=== PATIENT | female | born 1990 | race African-American/Black ===

== ENCOUNTER 2017-09-05 21:24 | Inpatient (IN) | payer MEDICAID, SELFPAY ==
[~2017-09-05 21:24] MED LIST: PHENYLEPHRINE-NS 100 MCG/ML 10 ML SYRINGE ONE; Propofol 200 MG/20 ML VIAL ONE; Succinylcholine Chloride 20 MG/ML 10 ml SYRINGE FS ONE; ePHEDrine/0.9% NaCl/PF SYRINGE 50 mg/10 ml ONE
[2017-09-05 22:00] VITALS: BMI 29.2
[2017-09-05] MEDS ORDERED: Ondansetron HCl/PF 4 MG/2 ML Vial IVP PRN (22:28)
[2017-09-05] MEDS ORDERED: Promethazine HCl 25 MG/ML VIAL IM PRN (22:28)
--- NOTE | 2017-09-05 22:35 | PDOC.LDHP ---
Labor and Delivery H&P Chief complaint: other (bleeding) HPI: 27 y/o at 17w4d by EDC given from [facility], presents with small gush of blood while working. Denies cramping, LOF. Has history of 17 week miscarriage several years ago and first trimester SAB earlier this year. Denies any other complaints. No care otherwise. ROS neg for HEENT, cv, pulm, gi, gu, neuro, psych, skin, musculoskeletal or constitutional symptoms other than mentioned above. OB History Details: 17 week SAB after SROM and delivery at home. Placenta delivered with cytotec here. 7 week SAB at the [facility] earlier this year. Past Medical History: None Allergies/Adverse Reactions: Allergies Allergy/AdvReac Type Severity Reaction Status Date / Time No Known Allergies Allergy Verified 09/05/17 21:52 Social history: tobacco use, drug use (marijuana) - Physical Exam Vital signs reviewed and normal: yes General: NAD, resting Lungs: nonlabored breathing Abdomen: gravid (NTTP) Extremeties: no edema - Vaginal Exam cm dilated: 3 (Membranes prolapsing through cervix) Effacement: 90% Station: -3 - OB Labs Blood type: AB RH: positive - Assessment Previable advanced cervical dilation. FHTs in 140s. - Plan Plan: admit to L&D, informed consent obtained -: Will monitor for ctx. Discussed likely need for cerclage in the future pregnancies, given history. Will get complete OB US and labs. Bedrest with SCDs for DVT prophylaxis. Continue expectant management at this time.
[2017-09-05] MEDS ORDERED: Azithromycin 250 MG TAB PO SCH (23:00)
[2017-09-05] MEDS: Lactated Ringer's 1,000 ML IV SCH (23:40)
[2017-09-05] MEDS ORDERED: Zolpidem Tartrate 5 MG TAB PO PRN (23:44)
--- NOTE | 2017-09-05 23:52 | ULT ---
ULTRASOUND PELVIS 09/05/17 HISTORY: Vaginal bleeding and incompetent cervix. COMPARISON: None. FINDINGS: The baby's head is not well seen. This is very low within the pelvis and abutting the cervix. The cer vical length is 1.3 cm and is opened 2 cm. Heart rate documented at 147 beats per minute. Four chamber heart, stomach, kidneys, cord insertion, bladder, upper and lower extremities are seen. Placenta is posterior. Biparietal diameter is 17 week, 6 day, 3.9 cm. Head circumference is 17 week, 2 day, 13.95 cm. Abdominal circumference is 16 week, 5 day, 10.9 cm. Estimated weight is 489 grams. The estimated weight is 28th percentile. Average ultrasound age is 17 week, 3 day. Estimated da te of delivery is 02/10/18, concomitant with clinical age. IMPRESSION: 1. Dilated open cervix which is incompetent with bulging membranes. 2. Single viable intrauterine with average ultrasound age of 17 week, 3 day. Estimate d date of delivery is 02/10/18. POS: MELVA
[2017-09-06] MEDS: Ampicillin 2 GM in Sodium Chloride 0.9% 100 ML IVPB SCH ×5 (00:04→23:46)
[2017-09-06 00:20] LABS: #Eosinphils 0.2 thou/uL (0.0-0.7); #Lymphocytes 2.3 thou/uL (1.20-3.40); #Monocytes 0.7 thou/uL (0.11-0.59); #Neutrophils 8.5 thou/uL (1.40-6.50); %Basophils 0.4 % (0.0-1.0); %Eosinophils 1.6 % (0.0-10.0); %Lymphocytes 19.3 % (21.0-51.0); %Monocytes 6.1 % (0.0-10.0); Hematocrit 37.8 % (36.0-47.0); Mean Platelet Volume 8.3 fL (7.4-10.4); Red Blood Cell (RBC) Count 4.49 mill/uL (4.20-5.40); White Blood Cell (WBC) Count 11.7 thou/uL (4.8-10.8)
[2017-09-06 00:23] LABS: Amphetamine Not Detected (NotDetected); Methadone Not Detected (NotDetected); Methamphetamine Not Detected (NotDetected)
[2017-09-06] MEDS: Acetaminophen 500 MG TAB PO PRN (01:29)
--- NOTE | 2017-09-06 07:48 | PDOC.LDPN ---
Labor & Delivery Progress Note - Subjective Subjective: comfortable - Objective Vital signs reviewed and normal: yes General: NAD, resting Uterine fundus: non tender - Assessment (1) Cervical insufficiency during in second trimester, antepartum Code(s): O34.32 - MATERNAL CARE FOR CERVICAL INCOMPETENCE, SECOND TRIMESTER Current Visit: Yes Status: Acute -: Patient did well overnight, no cramping or pain. Denies VB, LOF. + for BV, started on Flagyl. Will be NPO after breakfast for possible rescue cerclage. Continue expectant management for now.
[2017-09-06] MEDS: Lactated Ringer's 1,000 ML IV SCH ×2 (08:38→17:39)
[2017-09-06] MEDS: metroNIDAZOLE 500 MG TAB PO SCH ×2 (11:05→22:36)
[2017-09-06 19:03] LABS: Hematocrit 37.5 % (36.0-47.0); Mean Platelet Volume 7.5 fL (7.4-10.4); Red Blood Cell (RBC) Count 4.38 mill/uL (4.20-5.40)
[2017-09-06] MEDS ORDERED: Lidocaine 1% (PF) 30 ML VIAL ONE (19:27)
[2017-09-06] MEDS ORDERED: Fentanyl 100 MCG/2 ML VIAL ONE (19:49)
[2017-09-06] MEDS ORDERED: Ondansetron HCl/PF 4 MG/2 ML Vial IVP PRN (21:23)
[2017-09-06] MEDS ORDERED: Promethazine HCl 25 MG/ML VIAL IM PRN (21:23)
[2017-09-06] MEDS ORDERED: Promethazine HCl 25 MG/ML VIAL SLOW IVP PRN (21:23)
[2017-09-07] MEDS: Lactated Ringer's 1,000 ML IV SCH ×3 (02:07→19:57)
[2017-09-07] MEDS: Ampicillin 2 GM in Sodium Chloride 0.9% 100 ML IVPB SCH ×3 (06:01→18:17)
--- NOTE | 2017-09-07 07:43 | OP ---
DATE OF PROCEDURE: 09/06/2017 PREOPERATIVE DIAGNOSES: 1. Incompetent cervix. 2. Intrauterine at 17 weeks and 6 days. 3. Hourglassing membranes. POSTOPERATIVE DIAGNOSES: 1. Incompetent cervix. 2. Intrauterine at 17 weeks and 6 days. 3. Hourglassing membranes. PROCEDURE: Cervical cerclage. SURGEON: Dr. Tam Silva COMPLICATIONS: None. ESTIMATED BLOOD LOSS: 50 mL. INDICATIONS FOR PROCEDURE: Ms. Lay Royal is a 27-year-old female who has been here in the hosp ital for over 24 hours at 17 weeks and 6 days with a dilated cervix an hourglassing membranes in the absence of contractions or labor. She has remained afebrile and her white count has been stable. Th e patient was counseled to the possibility to attempt a cervical cerclage with the risks of rupture o f membranes, infection, labor, of damage to adjacent organs. We had a long discussion and idalia campos has expressed a clear understanding of her options and the potential complications to those opt ions and desires to proceed with the cervical cerclage. She was taken to the operating room and placed under general anesthesia. She was placed in dorsal li thotomy position in Delmer stirrups. Attention was placed vaginally with the aid of operative speculu m. The amniotic sac was clearly visible in the vaginal canal. The bladder was back filled to approx imately 500 mL of urine, which helped retract the amniotic sac further into the uterine cavity; howev er, the cervix was still not visible. A moist sponge stick was then used to gently elevate the bag f urther into the vaginal canal until it retracted into the cervix itself and into the uterine cavity. With a sponge stick in place the edges of the remaining cervix were then identified with the aid of a right-angle retractors and ring forceps with the cervix margins identified and the vaginal cervical junction identified. A mersilene tape double needle mersilene tape was then used with some difficul ty to create a pursestring stitch around the cervix about 1-1.5 cm from the outer edge of the cervix with care to always be aware of needle placement and care to avoid adjacent organs. After difficulty , the stitch was placed and the needles were cut and the surgeon's knot was then place into the sutur e and as it was tied down the sponge stick was removed and the cervix was this successfully closed. The suture was then tied down with a final air knot placed for better identification of the location of the knot and the procedure was completed. The patient was awoken from anesthesia and taken to rec overy room in stable condition.
--- NOTE | 2017-09-07 07:49 | PRG ---
DATE OF SERVICE: 09/07/2017 Early this morning the report was given that the patient while going to the bathroom coughed and bega n having gross leakage of fluid from her vaginal canal. The patient had spontaneously ruptured. The patient has been resting through the night, has not had contractions begin. We did discuss this mor anatoliy concerns with development at this stage with no fluid and discussed the options of removin g the suture or expected management with suture in place. The family has discussed their options. Kizzy yeung are waiting on the input from the hospital ethics committee on what limitations we have at this [facility] for moving forward and will be having further discussion later this morning. In the meantime, the patient will remain here and has no signs of labor. PHYSICAL EXAMINATION: VITAL SIGNS: Blood pressure this morning 99/53, heart rate of 100, respiratory rate 16, temperature 99.1. GENERAL: Patient appears to have internal conflict with the decision before her. We will be awaitin g the hospital's input.
--- NOTE | 2017-09-07 08:18 | PDOC.EVN ---
Event Note - Event Note Event Note: 09/07/17 @ 0815: L&D Room 7 Patient desires cercalge removal, 17 weeks with FHTs, ROM noted. Dr Silva and I and Vidhi Hogue in OBGYN Office now and all agree virtually no chance to remain without infection up to 23 weeks due to ROM at under 20 weeks ( under viability). Dr Silva (previously certified addiction counselor) has confirmed patient's desire to remove cerclage and await natural progress. If fevers or excessive leucocytosis, will need prostin induction. Prostin or cytotec induction if loss of FHTs. For now, await Ethics Clearence- Mykel to do this AM.
[2017-09-07] MEDS: Acetaminophen 500 MG TAB PO PRN ×2 (08:31→20:12)
--- NOTE | 2017-09-07 09:34 | PDOC.EVN ---
Event Note - Event Note Event Note: 09/07/17 @ 0930: Ariel Benito, the patient's RN, Ethics has called and cleared the cerclage removal. I have spoken to the patient at bedside along with her partner /. We discussed options including leaving the cerclage in place. Limits of viability discussed. patient wishes to remove cerclage. She is aware that spontaneous cervical dilation may progress. [facility] policy also reviewed with her regarding cardiac activity and limitations on labor induction. We will give the patient IV sedation and plan for removal of cerclage in the room (LDR 7).
--- NOTE | 2017-09-07 10:28 | PDOC.EVN ---
Event Note - Event Note Event Note: 09/07/17 @ 1022: CERCLAGE REMOVAL Location L&D Time to remove: 5 minutes Anesthesia: IV sedation (Stadol) In Triage B (patient moved from LDR 7 for lithotomy bed), patient underwent single cerclage removal with sharp mayos and lighted speculum. MDs: Cerclage removed by Dr Turner in my presence, direct visualization. EBL: 5ml or less. No monsels used. Cervix visually closed. Patient tolerated procedure well. We will tranfer back to R 7. Assessment/Plan: 1. 17 weeks 2. Cerclage out 3. VTE prophylaxis- SCDs 4. Ethics cleared 5. Follow temps and FHTs for now. i did inform her that she may be transfered at her request if desired induction prior to our intervention per L&D policy.
[2017-09-07] MEDS: metroNIDAZOLE 500 MG TAB PO SCH ×2 (10:38→21:33)
--- NOTE | 2017-09-07 16:57 | PDOC.EVN ---
Event Note - Event Note Event Note: 09/07/17 @ 1654: L&D check: Patient stable. No new issues. Afebrile. S/P cerclage removal this AM.
--- NOTE | 2017-09-07 20:13 | PDOC.EVN ---
Event Note - Event Note Event Note: 09/07/17 @ 2013: Temp 99.1. Repeat CBC ordered for 0330.Currently on Amp/Flagyl from yesterday's .
[2017-09-08] MEDS: Ampicillin 2 GM in Sodium Chloride 0.9% 100 ML IVPB SCH ×4 (00:15→18:30)
[2017-09-08] MEDS: Lactated Ringer's 1,000 ML IV SCH (04:04)
[2017-09-08 05:36] LABS: #Eosinphils 0.1 thou/uL (0.0-0.7); #Lymphocytes 2.1 thou/uL (1.20-3.40); #Monocytes 0.6 thou/uL (0.11-0.59); #Neutrophils 5.5 thou/uL (1.40-6.50); %Basophils 0.3 % (0.0-1.0); %Eosinophils 1.4 % (0.0-10.0); %Lymphocytes 24.7 % (21.0-51.0); %Monocytes 7.1 % (0.0-10.0); Red Blood Cell (RBC) Count 3.59 mill/uL (4.20-5.40); White Blood Cell (WBC) Count 8.3 thou/uL (4.8-10.8)
[2017-09-08] MEDS: Acetaminophen 500 MG TAB PO PRN (06:30)
[2017-09-08] MEDS ORDERED: Cepastat Lozenges 1 LOZ PO PRN (06:41)
--- NOTE | 2017-09-08 07:11 | PDOC.EVN ---
Event Note - Event Note Event Note: 09/08/17 @ 0710: Cerclage removed yesterday AM. Patient with no new complaints. No VB. Afebrile. We will await 48 hours after cerclage removal and consider outpatient follow up if fevers OR continue in-house observations. For now, continue L&D obs.
[2017-09-08] MEDS: metroNIDAZOLE 500 MG TAB PO SCH ×2 (09:24→21:08)
--- NOTE | 2017-09-08 19:17 | PDOC.EVN ---
Event Note - Event Note Event Note: Patient requesting ultrasound to look at fluid level. Still feeling movement. Bleeding and fluid leakage minimal. Tolerating regular diet, ambulating to bathroom. Temp 98-99. VSS Abd - gravid, nontender Bedside ultrasound performed: no measurable pockets of fluid, fetus with + movement and FHTs in 150s. Continue expectant management. Will recheck labs in am.
[2017-09-09] MEDS: Ampicillin 2 GM in Sodium Chloride 0.9% 100 ML IVPB SCH ×5 (00:20→22:07)
[2017-09-09 05:47] LABS: #Basophils 0.1 thou/uL (0.0-0.2); #Eosinphils 0.2 thou/uL (0.0-0.7); #Monocytes 0.5 thou/uL (0.11-0.59); #Neutrophils 5.4 thou/uL (1.40-6.50); %Basophils 0.6 % (0.0-1.0); %Eosinophils 2.1 % (0.0-10.0); %Lymphocytes 24.8 % (21.0-51.0); %Monocytes 6.1 % (0.0-10.0); Hematocrit 32.7 % (36.0-47.0); Mean Platelet Volume 7.2 fL (7.4-10.4); Red Blood Cell (RBC) Count 3.81 mill/uL (4.20-5.40); White Blood Cell (WBC) Count 8.1 thou/uL (4.8-10.8)
--- NOTE | 2017-09-09 07:29 | PDOC.EVN ---
Event Note - Event Note Event Note: S: Doing well this morning, no complaints. LOF minimal, pink tinged. O: AFVSS, Tm 99.2 Gen: AAO, NAD Abd: gravid, NTTP Laboratory Results - last 24 hr 09/05/17 09/09/17 23:40 05:37 WBC 8.1 RBC 3.81 L Hgb 11.4 L Hct 32.7 L MCV 85.9 MCH 29.9 MCHC 34.8 RDW 11.5 Plt Count 183 MPV 7.2 L Neutrophils % 66.4 Lymphocytes % 24.8 Monocytes % 6.1 Eosinophils % 2.1 Basophils % 0.6 Neutrophils # 5.4 Lymphocytes # 2.0 Monocytes # 0.5 Eosinophils # 0.2 Basophils # 0.1 Rubella IgG Antibody Less than 0.90 L A/P: Will be s/p cerclage removal later this morning. Continue to monitor with likely d/c for expectant management.
[2017-09-09] MEDS: metroNIDAZOLE 500 MG TAB PO SCH (09:10)
--- NOTE | 2017-09-09 09:43 | PRG ---
DATE OF SERVICE: 09/09/2017 TIME OF SERVICE: 09:15 SUBJECTIVE: Patient is a G3, P0, at 18 weeks and 1 day gestation with previable cervical dil atation and rupture of membrane, status post cerclage placement, status post removal of cerclage. Th e patient has a history of prior second trimester incompetent cervix loss. The patient is currently on Flagyl only for bacterial vaginosis. Ampicillin and Zithromax that was administered ion und the time of cerclage, patient has been discontinued. PHYSICAL EXAMINATION: VITAL SIGNS: The patient remains afebrile with pulse in the 80s, normal blood pressures. GENERAL: Patient is alert and oriented, conversant and appropriate. ABDOMEN: Soft and nontender. GENITOURINARY: Vaginally, minimal to any discharge. EXTREMITIES: Without clubbing, cyanosis or edema. LABORATORY STUDIES: Patient's white count has declined to approximately 8,000, hematocrit is stable. IMPRESSION: Status post rupture of membranes with present FHTs at 18 weeks gestation, status post re moval of cerclage with cervical dilatation to 2-3 cm range last visual exam. PLAN: Discussed with the patient extensively the nonviable nature of her fetus at this time and that for the next 6-7 weeks, care would be based mostly upon maternal needs. Discussed the risk of william nuing the including possible chorioamnionitis, uterine infection, sepsis and even remote po ssibility of organ failure, need for hysterectomy, and . PLAN: 1. Continue p.o. Flagyl for 7 days for bacterial vaginosis. 2. Continue hospitalization with transfer to antepartum aguila, allowing ambulation, showering, regula r diet. 3. Routine vital signs with daily FHTs. 4. Ultrasound on Thursday. 5. Possible discharge home at approximately 7 days post presentation with close followup. Gore for d ischarge home would be patient's compliance with care plan, access to transportation, and digital tem perature measurements on 4 times a day basis at home.
[2017-09-09] MEDS ORDERED: Calcium Carbonate 500 MG ChewTAB PO PRN (14:17)
[2017-09-09] MEDS ORDERED: Ondansetron ODT 4 MG TAB PO PRN (14:17)
[2017-09-09] MEDS ORDERED: Acetaminophen 325 MG TAB PO PRN (14:17)
[2017-09-09] MEDS: Lactated Ringer's 1,000 ML IV SCH ×2 (14:46→22:06)
[2017-09-09] MEDS: Famotidine 20 MG TAB PO SCH (21:04)
[2017-09-09] MEDS: Docusate 100 MG CAP PO SCH (21:04)
[2017-09-10 05:34] LABS: #Eosinphils 0.2 thou/uL (0.0-0.7); #Lymphocytes 2.1 thou/uL (1.20-3.40); #Monocytes 0.6 thou/uL (0.11-0.59); #Neutrophils 5.6 thou/uL (1.40-6.50); %Basophils 0.5 % (0.0-1.0); %Eosinophils 2.7 % (0.0-10.0); %Lymphocytes 24.5 % (21.0-51.0); %Monocytes 6.4 % (0.0-10.0); Mean Platelet Volume 8.2 fL (7.4-10.4); Red Blood Cell (RBC) Count 4.09 mill/uL (4.20-5.40); White Blood Cell (WBC) Count 8.5 thou/uL (4.8-10.8)
--- NOTE | 2017-09-10 07:40 | PRG ---
DATE OF SERVICE: 09/10/2017 TIME OF SERVICE: 07:15 SUBJECTIVE: Ms. Felder is on hospital day #5, status post spontaneous rupture of membranes, status post presentation with incompetent cervix, cerclage placement and removal. She denies contractions. OBJECTIVE: VITALS SIGNS: FHTs 150s, temperature 98.2, pulse 72, respirations 18, blood pressure 96/55. GENERAL: The patient is resting comfortably. ABDOMEN: Soft and nontender, without rebound or guarding. No vaginal bleeding or discharge is noted . LABORATORY DATA: White count is 8.5. IMPRESSION: Early second trimester rupture of membranes with persistent heart rate activity an d no evidence of chorioamnionitis. PLAN: Continue Flagyl for bacterial vaginosis. Continue hospital admission because of concerns abou t the risks of chorioamnionitis. We will consider discharge home on approximately day 7-9 with close outpatient followup if current course continues.
[2017-09-10] MEDS: metroNIDAZOLE 500 MG TAB PO SCH ×3 (09:12→20:47)
[2017-09-10] MEDS: Famotidine 20 MG TAB PO SCH (09:12)
[2017-09-10] MEDS: Docusate 100 MG CAP PO SCH (09:12)
--- NOTE | 2017-09-10 11:15 | PDOC.EVN ---
Event Note - Event Note Event Note: S: I was called to floor for suspected cord prolapse. Pt denies any chills, CV or RESP complaints. She reports continued extremely light VB but no odor, itching or irritation. She states it feels as though she is "going to pass a blood clot when I'm on my period." Pt noticed after trip to [place]. O: Vital Signs (24 hours) Temp Pulse Resp BP Pulse Ox 09/10/17 08:04 98.4 F 75 20 96 09/10/17 07:43 98.4 F 75 20 86/49 L 96 09/10/17 04:12 98.2 F 72 18 96/55 L 96 09/09/17 23:29 99.2 F 70 18 99/60 09/09/17 19:48 98.9 F 77 18 93/55 L 09/09/17 16:27 98.7 F 75 20 09/09/17 14:17 98.7 F 75 20 100/60 FHT. 180s Gen. NAD Resp. Unlabored . loop of cord prolapsed past introitus A/P: 18+ week IUP with incompetent cervix, s/p rescue cerclage, rupture of membranes , removal of cerclage. Pt has been stable for the last 3 days, now with cord prolapse and live IUP * transfer to L&D * CBC, BMP, lactic acid * Ultrasound * expectant mgmt as long as live IUP unless pt develops life threatening maternal complications
[2017-09-10 11:48] LABS: #Basophils 0.1 thou/uL (0.0-0.2); #Eosinphils 0.2 thou/uL (0.0-0.7); #Lymphocytes 1.6 thou/uL (1.20-3.40); #Monocytes 0.4 thou/uL (0.11-0.59); #Neutrophils 6.2 thou/uL (1.40-6.50); %Basophils 0.7 % (0.0-1.0); %Lymphocytes 18.5 % (21.0-51.0); %Monocytes 4.9 % (0.0-10.0); Hematocrit 36.2 % (36.0-47.0); Mean Platelet Volume 7.3 fL (7.4-10.4); Red Blood Cell (RBC) Count 4.23 mill/uL (4.20-5.40); White Blood Cell (WBC) Count 8.4 thou/uL (4.8-10.8)
[2017-09-10 12:06] LABS: Anion Gap 10 mmol/L (10-20); BUN (Urea Nitrogen) 7 mg/dL (7.0-18.7); Calc. Creatinine Clearance 150 mL/min (70-130); Calcium 8.6 mg/dL (7.8-10.44); Carbon Dioxide 23 mmol/L (22-29); Chloride 106 mmol/L (98-107); Estimated GFR-MDRD Greater than 90
[2017-09-11] MEDS: Famotidine 20 MG TAB PO SCH ×3 (04:42→21:12)
[2017-09-11] MEDS: Docusate 100 MG CAP PO SCH ×4 (04:42→21:13)
[2017-09-11 05:56] LABS: #Eosinphils 0.2 thou/uL (0.0-0.7); #Monocytes 0.5 thou/uL (0.11-0.59); #Neutrophils 6.2 thou/uL (1.40-6.50); %Basophils 0.2 % (0.0-1.0); %Eosinophils 2.4 % (0.0-10.0); %Lymphocytes 22.7 % (21.0-51.0); %Monocytes 5.8 % (0.0-10.0); Hematocrit 34.6 % (36.0-47.0); Mean Platelet Volume 7.9 fL (7.4-10.4); Red Blood Cell (RBC) Count 4.04 mill/uL (4.20-5.40)
--- NOTE | 2017-09-11 08:28 | PDOC.EVN ---
Event Note - Event Note Event Note: Pt doing well, cont'd min pinkish vaginal bleeding. No pain or cramping Vital Signs (24 hours) Temp Pulse Resp BP 09/10/17 19:58 98.6 F 77 20 09/10/17 11:05 71 99/53 L Laboratory Last Values WBC 9.0 thou/uL (4.8-10.8) 09/11/17 05:12 RBC 4.04 mill/uL (4.20-5.40) L 09/11/17 05:12 Hgb 12.0 g/dL (12.0-16.0) 09/11/17 05:12 Hct 34.6 % (36.0-47.0) L 09/11/17 05:12 MCV 85.7 fl (81.0-99.0) 09/11/17 05:12 MCH 29.8 pg (27.0-31.0) 09/11/17 05:12 MCHC 34.7 g/dL (32.0-36.0) 09/11/17 05:12 RDW 11.6 % (11.5-14.5) 09/11/17 05:12 Plt Count 209 thou/uL (130-400) 09/11/17 05:12 MPV 7.9 fL (7.4-10.4) 09/11/17 05:12 Neutrophils % 68.9 % (42.0-75.0) 09/11/17 05:12 Lymphocytes % 22.7 % (21.0-51.0) 09/11/17 05:12 Monocytes % 5.8 % (0.0-10.0) 09/11/17 05:12 Eosinophils % 2.4 % (0.0-10.0) 09/11/17 05:12 Basophils % 0.2 % (0.0-1.0) 09/11/17 05:12 Neutrophils # 6.2 thou/uL (1.40-6.50) 09/11/17 05:12 Lymphocytes # 2.0 thou/uL (1.20-3.40) 09/11/17 05:12 Monocytes # 0.5 thou/uL (0.11-0.59) 09/11/17 05:12 Eosinophils # 0.2 thou/uL (0.0-0.7) 09/11/17 05:12 Basophils # 0.0 thou/uL (0.0-0.2) 09/11/17 05:12 Sodium 136 mmol/L (136-145) 09/10/17 11:38 Potassium 3.4 mmol/L (3.5-5.1) L 09/10/17 11:38 Chloride 106 mmol/L (98-107) 09/10/17 11:38 Carbon Dioxide 23 mmol/L (22-29) 09/10/17 11:38 Anion Gap 10 mmol/L (10-20) 09/10/17 11:38 BUN 7 mg/dL (7.0-18.7) 09/10/17 11:38 Creatinine 0.68 mg/dL (0.6-1.1) 09/10/17 11:38 Estimated GFR (MDRD) Greater than 90 09/10/17 11:38 Glucose 76 mg/dL (70-105) 09/10/17 11:38 Lactic Acid 0.8 mmol/L (0.5-2.2) 09/10/17 11:38 Calcium 8.6 mg/dL (7.8-10.44) 09/10/17 11:38 Urine Opiates Screen Not Detected (NotDetected) 09/05/17 23:15 Ur Oxycodone Screen Not Detected (NotDetected) 09/05/17 23:15 Urine Methadone Screen Not Detected (NotDetected) 09/05/17 23:15 Ur Propoxyphene Screen Not Detected (NotDetected) 09/05/17 23:15 Ur Barbiturates Screen Not Detected (NotDetected) 09/05/17 23:15 Ur Tricyclics Screen Not Detected (NotDetected) 09/05/17 23:15 Ur Phencyclidine Scrn Not Detected (NotDetected) 09/05/17 23:15 Ur Amphetamines Screen Not Detected (NotDetected) 09/05/17 23:15 U Methamphetamines Scrn Not Detected (NotDetected) 09/05/17 23:15 U Benzodiazepines Scrn Not Detected (NotDetected) 09/05/17 23:15 U Cocaine Metab Screen Not Detected (NotDetected) 09/05/17 23:15 U Cannabinoids Screen Detected (NotDetected) H 09/05/17 23:15 Drug Screen Comment () 09/05/17 23:15 Syphilis IgG/IgM Ab Nonreactive (Nonreactive) 09/05/17 23:40 Chlamydia DNA (PCR) Not Detected (NotDetected) 09/05/17 23:45 Hep Bs Antigen Non-Reactive S/CO (NonReactive) 09/05/17 23:40 HIV 1&2 Antigen & Ab Non-Reactive (NonReactive) 09/05/17 23:40 N.gonorrhoeae DNA (PREPARER) Not Detected (NotDetected) 09/05/17 23:45 Rubella IgG Antibody Less than 0.90 index (Immune >0.99) L 09/05/17 23:40 Blood Type AB POSITIVE 09/05/17 23:40 Antibody Screen NEGATIVE 09/05/17 23:40 Gen NAD FHT 150s A/P; 18+ week IUP with incompetent cervix, s/p rescure cerclage, s/p ROM and removal of cerclage. Had cord prolapse yesterday and but has otherwise remained stable. No leukocytosis. Cont observation for infection, bleeding or other life threatening maternal complication. Induce in case of that or demise
[2017-09-11] MEDS: metroNIDAZOLE 500 MG TAB PO SCH ×2 (10:23→18:32)
[2017-09-12 08:29] LABS: #Eosinphils 0.1 thou/uL (0.0-0.7); #Lymphocytes 1.3 thou/uL (1.20-3.40); #Monocytes 0.8 thou/uL (0.11-0.59); %Basophils 0.4 % (0.0-1.0); %Lymphocytes 11.5 % (21.0-51.0); %Monocytes 6.7 % (0.0-10.0); Hematocrit 36.8 % (36.0-47.0); Mean Platelet Volume 8.6 fL (7.4-10.4); Red Blood Cell (RBC) Count 4.32 mill/uL (4.20-5.40); White Blood Cell (WBC) Count 11.2 thou/uL (4.8-10.8)
[2017-09-12] MEDS ORDERED: Ibuprofen 800 MG TAB PO PRN (08:46)
[2017-09-12] MEDS ORDERED: Misoprostol 200 MCG TAB PR PRN (08:46)
[2017-09-12] MEDS ORDERED: Lidocaine 1% (PF) 30 ML VIAL SC PRN (08:46)
[2017-09-12] MEDS ORDERED: Fentanyl 100 MCG/2 ML VIAL ONE (08:50)
--- NOTE | 2017-09-12 08:56 | PDOC.EVN ---
Event Note - Event Note Event Note: S: Pt c/o cramping since this AM and chills that just started. Cervix was checked by RN earlier b/c pt felt need to push O: Vital Signs (24 hours) Temp Pulse Resp 09/11/17 20:00 98.7 F 91 18 09/11/17 11:00 98.7 F Tm24h 99.3 Gen. Mild distress Resp. unlabored . Prolapsed cord, cx Laboratory Results - last 24 hr 09/12/17 07:30 WBC 11.2 H RBC 4.32 Hgb 13.0 Hct 36.8 MCV 85.2 MCH 30.1 MCHC 35.4 RDW 11.5 Plt Count 210 MPV 8.6 Neutrophils % 80.4 H Lymphocytes % 11.5 L Monocytes % 6.7 Eosinophils % 1.0 Basophils % 0.4 Neutrophils # 9.0 H Lymphocytes # 1.3 Monocytes # 0.8 H Eosinophils # 0.1 Basophils # 0.0 A/P: 18+ week IUP, incompetent cervix s/p rescure cerclage followed by ROM. Cord prolapse on 09/10. Pt has leukocytosis today and chills but Tm 99.3. * recheck temp and FHT now * epidural for pain mgmt * CMP and lactic acid ordered * anticipate vaginal delivery of non-viable fetus
[2017-09-12] MEDS ORDERED: Morphine 10 MG/ML VIAL SLOW IVP SCH (09:00)
[2017-09-12] MEDS ORDERED: Fentanyl 100 MCG/2 ML VIAL SLOW IVP SCH (09:00)
[2017-09-12] MEDS ORDERED: Fentanyl 4 mcg/Marc 0.1% Cadd 100 ML ONE (09:31)
[2017-09-12 09:43] LABS: Lactic Acid - Sepsis 2.4 mmol/L (0.5-2.2)
[2017-09-12 09:48] LABS: ALT (SGPT) 116 U/L (8-55); AST (SGOT) 67 U/L (5-34); Alkaline Phosphatase 88 U/L (40-150); Anion Gap 13 mmol/L (10-20); BUN (Urea Nitrogen) 5 mg/dL (7.0-18.7); Bilirubin, Total 0.5 mg/dL (0.2-1.2); Calc. Creatinine Clearance 140 mL/min (70-130); Calcium 8.8 mg/dL (7.8-10.44); Carbon Dioxide 20 mmol/L (22-29); Chloride 106 mmol/L (98-107); Estimated GFR-MDRD Greater than 90; Globulin 3.2 g/dL (2.4-3.5); Protein, Total 6.6 g/dL (6.0-8.3)
--- NOTE | 2017-09-12 11:10 | PDOC.EVN ---
Event Note - Event Note Event Note: FHT attempted and noted to be absent with doppler. Ltd sono confirmed absence of heart tones. Pt will receive epidural and then cytotec. Vital Signs (12 hours) Temp Pulse Resp BP 09/12/17 08:00 98.1 F 88 20 89/62 L Weight Weight 170 lb Laboratory Results - last 24 hr 09/12/17 09/12/17 09/12/17 07:30 09:13 09:13 WBC 11.2 H RBC 4.32 Hgb 13.0 Hct 36.8 MCV 85.2 MCH 30.1 MCHC 35.4 RDW 11.5 Plt Count 210 MPV 8.6 Neutrophils % 80.4 H Lymphocytes % 11.5 L Monocytes % 6.7 Eosinophils % 1.0 Basophils % 0.4 Neutrophils # 9.0 H Lymphocytes # 1.3 Monocytes # 0.8 H Eosinophils # 0.1 Basophils # 0.0 Sodium 136 Potassium 3.2 L Chloride 106 Carbon Dioxide 20 L Anion Gap 13 BUN 5 L Creatinine 0.73 Estimated GFR (MDRD) Greater than 90 Glucose 98 Lactic Acid 2.4 H Calcium 8.8 Total Bilirubin 0.5 AST 67 H ALT 116 H Alkaline Phosphatase 88 Serum Total Protein 6.6 Albumin 3.4 L Globulin 3.2 Albumin/Globulin Ratio 1.1 L
[2017-09-12] MEDS ORDERED: Eucerin (Mineral Oil/Petrolatum,White) 30 gm Jar TOP PRN (11:17)
[2017-09-12] MEDS ORDERED: Naloxone HCl 0.4 mg/ml Vial IVP PRN ×2 (11:17)
[2017-09-12] MEDS ORDERED: Ondansetron HCl/PF 4 MG/2 ML Vial IVP PRN (11:17)
[2017-09-12] MEDS ORDERED: Acetaminophen 325 MG TAB PO PRN (11:17)
[2017-09-12] MEDS ORDERED: diphenhydrAMINE 50 MG/ML VIAL IVP PRN (11:17)
[2017-09-12] MEDS ORDERED: Lactated Ringer's 500 ML IV PRN (11:17)
[2017-09-12] MEDS ORDERED: Promethazine HCl 25 MG/ML VIAL IM PRN (11:17)
[2017-09-12] MEDS ORDERED: ePHEDrine/0.9% NaCl/PF SYRINGE 50 mg/10 ml SLOW IVP PRN (11:17)
[2017-09-12] MEDS ORDERED: Communication Order-Pharmacy FS SCH (11:30)
[2017-09-12] MEDS: Misoprostol 100 MCG TAB VAG SCH ×3 (11:43→20:44)
[2017-09-12] MEDS: Fentanyl 4mcg/Marcaine 0.1% Cassette 100 ML EPIDURAL SCH ×2 (11:44→18:41)
[2017-09-12] MEDS: Famotidine 20 MG TAB PO SCH (13:57)
[2017-09-12] MEDS: LR / Pitocin 40 units/1000 ml 1,000 ML IV PRN ×2 (19:15→21:26)
[2017-09-12] MEDS: metroNIDAZOLE 500 MG TAB PO SCH ×2 (20:44→20:45)
[2017-09-12] MEDS ORDERED: Bisacodyl 10 MG SUPP PR PRN (23:31)
[2017-09-12] MEDS ORDERED: LR / Pitocin 40 units/1000 ml 1,000 ML IV SCH (23:31)
[2017-09-12] MEDS ORDERED: Milk Of Magnesia 30 ML UDCUP PO PRN (23:31)
[2017-09-12] MEDS ORDERED: Docusate (Surfak) 240 MG CAP PO SCH (23:45)
[2017-09-12] MEDS ORDERED: Ibuprofen 800 MG TAB PO SCH (23:45)
[2017-09-12] MEDS ORDERED: Adacel (T-DAP) 0.5 ML VIAL IM ONE (23:45)
[2017-09-13] MEDS: Misoprostol 100 MCG TAB VAG SCH (01:26)
[2017-09-13] MEDS: Docusate 100 MG CAP PO SCH (01:26)
[2017-09-13] MEDS: Famotidine 20 MG TAB PO SCH (01:26)
[2017-09-13] MEDS ORDERED: Docusate (Surfak) 240 MG CAP PO SCH (09:00)
[2017-09-13] MEDS: Ferrous Sulfate 325 MG TAB PO SCH ×2 (09:06→15:56)
[2017-09-13] MEDS: Ibuprofen 800 MG TAB PO SCH ×2 (09:06→15:55)
[2017-09-13 15:59] VITALS: BP 98/60; TEMP 98.9
--- NOTE | 2017-09-14 13:44 | DIS ---
DATE OF ADMISSION: 09/05/2017 DATE OF DISCHARGE: 09/13/2017 ADMISSION DIAGNOSES: 1. An 18-week intrauterine . 2. Incompetent cervix with dilation of 3 cm. DISCHARGE DIAGNOSES: 1. Incompetent cervix with dilation of 3 cm at 18 weeks' gestation. 2. rupture of membranes. 3. Cord prolapse. 4. labor. PROCEDURES PERFORMED: 1. Ultrasound. 2. Rescue cerclage. 3. Management of labor versus late second trimester miscarriage. HOSPITAL COURSE: At the time of presentation this morning, Emerita is a 27-year-old 3, para 0 female at approximately 18 weeks' gestation with known history of incompetent cervix in a prior pr egnancy as well as a first trimester loss in a prior . At the time of presentation, her cer vix was found to be 3 cm dilated. She received a rescue cerclage. Shortly after the rescue cerclage was placed, patient had spontaneous rupture of membranes. The rescue cerclage was removed and she w as managed expectantly. On 09/10/2017, patient was noted to have prolapse of the umbilical cord. Sh e continued to have positive cardiac motion and was not having any bleeding or cramping. The p atient did not demonstrate any leukocytosis. She continued to be managed expectantly. She was caref ully monitored for fever and sinus infection and was moved to labor and delivery. On 09/12/2017, dianne angulo began to have heavier vaginal bleeding, crampy abdominal pain. cardiac motion was noted t o have stopped and patient was diagnosed with intrauterine demise. At that point, she received an epidural for pain and Cytotec for completion of second trimester incomplete medically. She had an uncomplicated delivery of the baby followed closely by the placenta with estimated blood l oss of 450 mL. The patient tolerated the procedure well. She was maintained in total 1 day after de livery. She remained afebrile. She had adequate pain control. On the day of discharge, patient was afebrile and vital signs were stable. Abdomen was soft, nontender, nondistended, no rebound, no gua rding. ASSESSMENT AND PLAN: One day status post completion of second trimester incomplete with Cyt otec. The patient is doing well. She was discharged to home with routine precautions and encouraged to follow up in 1-[address] Flanagan. Of note, the patient was instructed several times that i n future , she does need to present in the first trimester for care and that she ma y receive a cerclage at approximately 14 weeks for the diagnosis of incompetent cervix. The patient expressed understanding.
== END 2017-09-13 20:10 | disposition home or self-care (01) | DRG 983 ==
LOC: L&D/OP 21:24 → L&D 22:38 → 3SE 09-09 14:10 → L&D 09-10 10:58 → 3SE 09-12 22:42
PROVIDERS: ADMIT Obstetrics & Gynecology; ATTEND Obstetrics & Gynecology
PROC: 0UVC7ZZ Restriction of Cervix, Via Natural or Artificial Opening (ICD-10-PCS; principal; 2017-09-06)
PROC: 0UCC7ZZ Extirpation of Matter from Cervix, Via Natural or Artificial Opening (ICD-10-PCS; 2017-09-07)
PROC: 10E0XZZ Delivery of Products of Conception, External Approach (ICD-10-PCS; 2017-09-12)
PROC: 3E0P7VZ Introduction of Hormone into Female Reproductive, Via Natural or Artificial Opening (ICD-10-PCS; 2017-09-12)
DX: O34.32 Maternal care for cervical incompetence, second trimester (principal); O69.0XX0 Labor and delivery complicated by prolapse of cord, not applicable or unspecified; O03.4 Incomplete spontaneous abortion without complication; Z3A.18 18 weeks gestation of pregnancy; O42.912 Preterm premature rupture of membranes, unspecified as to length of time between rupture and onset of labor, second trimester
CPT/HCPCS: 36415; 76805; 76815; 80048; 80053; 80306; 83605; 85025; 85027; 86762; 86780; 86850; 86900; 86901; 87340; 87389; 87480; 87491; 87510; 87591; 87660; 88300; 88305; J0290; J0595; J2001; J2704; J3010; J7050

== ENCOUNTER 2018-06-01 10:08 | Day surgery (SDC) | payer OTHER ==
[2018-05-31 12:41] VITALS: BMI 28.9
[2018-06-01] MEDS ORDERED: CEFAZOLIN/Water 2 GM/20 ML SYRINGE ONE (10:58)
[2018-06-01] MEDS ORDERED: Fentanyl 100 MCG/2 ML VIAL ONE (13:21)
--- NOTE | 2018-06-01 14:19 | OP ---
DATE OF PROCEDURE: 06/01/2018 PREOPERATIVE DIAGNOSES: 1. Intrauterine at 13 weeks. 2. Cervical insufficiency. POSTOPERATIVE DIAGNOSES: 1. Intrauterine at 13 weeks. 2. Cervical insufficiency. PROCEDURE: Prophylactic cervical cerclage. ANESTHESIA: IV sedation. ATTENDING SURGEON: Elizabeth Shafer M.D. WIND FARM DESIGNER: None. ESTIMATED BLOOD LOSS: 5 mL. INTRAVENOUS FLUIDS: 1200 mL crystalloid. URINE OUTPUT: 500 mL of clear urine. PATHOLOGY: None. COMPLICATIONS: None. DRAINS: None. FINDINGS: A long closed cervix internally thick and dilated 1 cm externally. No mersilene knot was present at the 12 o'clock position at the level of the internal cervical os and the cervix was long, closed and thick at the conclusion of the procedure. OPERATIVE TECHNIQUE: The patient was taken to the operating room where IV anesthesia was obtained wi thout difficulty. The patient was prepped and draped in a sterile fashion in the [facility] . A weighted speculum was placed in the vagina and anterior retraction with a sim. The anterior and posterior lips of the cervix were grasped with ring forceps and gentle traction was placed on the ce rvix to elongate. The mersilene tape was used to perform the cerclage for circumferential bites arou nd the cervix, tying the knot at 12 o'clock position, cinching down the tape to leave the cervix clos ed internally and an air knot was placed on top of the original knot in order to locate the cervical cerclage. No active bleeding was present at the conclusion of cerclage placement and irrigation was performed of the vagina. All instruments were removed from the vagina. The patient tolerated the pr ocedure well. Sponge and needle counts were correct x2. The patient was taken to recovery room in s table condition. The patient received Ancef 2 grams prior to the procedure.
[2018-06-01] MEDS ORDERED: Morphine 4 MG/ML VIAL ONE ×2 (14:26→14:45)
[2018-06-01] MEDS ORDERED: HYDROcodone/Acetaminophen 5/325 mg Tablet ONE (15:08)
[2018-06-01] MEDS ORDERED: Ondansetron HCl/PF 4 MG/2 ML Vial ONE (15:25)
== END 2018-06-01 19:20 | disposition home or self-care (01) ==
LOC: SDC 10:08
PROVIDERS: ATTEND Student in an Organized Health Care Education/Training Program
PROC: 0UVC7ZZ Restriction of Cervix, Via Natural or Artificial Opening (ICD-10-PCS; principal; 2018-06-01)
DX: O34.31 Maternal care for cervical incompetence, first trimester (principal); O99.331 Smoking (tobacco) complicating pregnancy, first trimester; F17.210 Nicotine dependence, cigarettes, uncomplicated; O26.21 Pregnancy care for patient with recurrent pregnancy loss, first trimester; O23.591 Infection of other part of genital tract in pregnancy, first trimester; O99.211 Obesity complicating pregnancy, first trimester; E66.9 Obesity, unspecified; Z68.28 Body mass index [BMI] 28.0-28.9, adult; Z79.899 Other long term (current) drug therapy; Z91.018 Allergy to other foods; Z3A.13 13 weeks gestation of pregnancy
CPT/HCPCS: 96374; 96375; J2270; J2405; J3010

== ENCOUNTER 2018-09-17 01:21 | Inpatient (IN) | payer OTHER ==
[2018-09-17] MEDS: Lactated Ringer's 1,000 ML IV SCH ×2 (02:10→10:51)
[2018-09-17] MEDS ORDERED: Butorphanol Tartrate 1 MG/ML VIAL SLOW IVP PRN (02:17)
[2018-09-17] MEDS ORDERED: Ondansetron PF 4 MG/2 ML Vial IVP PRN ×2 (02:17→04:50)
[2018-09-17] MEDS ORDERED: Promethazine HCl 25 MG/ML VIAL IM PRN ×2 (02:17→04:50)
[2018-09-17] MEDS ORDERED: Acetaminophen 500 MG TAB PO PRN (02:17)
[2018-09-17] MEDS ORDERED: Magnesium Sulfate 20 gm/500 ml 20 GM/500 ML BAG ONE (02:24)
[2018-09-17] MEDS ORDERED: Magnesium Sulfate 20 gm/500 ml 6 GM/150 ML BAG IVPB ONE (02:30)
[2018-09-17] MEDS ORDERED: Bicitra 30 ML UDCUP PO SCH (02:30)
[2018-09-17] MEDS ORDERED: Calcium Gluc 4.6 MEQ/10 ML (100 MG/ML) IV PRN (02:30)
[2018-09-17] MEDS ORDERED: CEFAZOLIN/Water 2 GM/20 ML SYRINGE SLOW IVP SCH (02:30)
[2018-09-17] MEDS ORDERED: Magnesium Sulfate 20 gm/500 ml 20 GM/500 ML BAG IVPB PRN (02:30)
[2018-09-17 02:32] LABS: Hemoglobin 12.7 g/dL (12.0-16.0); Mean Corpuscular Hemoglobin 28.7 pg (27.0-31.0); Mean Corpuscular Volume 81.8 fL (78.0-98.0); Mean Platelet Volume 8.8 fL (7.4-10.4); Platelet Count 228 thou/uL (130-400); RBC Distribution Width 11.9 % (11.5-14.5); Red Blood Cell (RBC) Count 4.42 mill/uL (4.20-5.40); White Blood Cell (WBC) Count 12.7 thou/uL (4.8-10.8)
[2018-09-17 02:42] VITALS: BMI 31.2
--- NOTE | 2018-09-17 03:08 | PDOC.FPROB ---
FMR OB H&P: HPI - History of Present Illness Chief Complaint: Vaginal bleeding History of Present Illness: 28 yo at 29.2w by 11.1w sono here with cc of vaginal bleeding that started at 0100 this morning. She was sleeping, coughed and felt like she had urinated on herself. She got up to the bathroom and when she looked in the toilet she had lots of clots, bright red blood and dark red blood. She is feeling baby move regularly and prior to this was feeling very well apart from some URI symptoms. Primary Care Physician: Clinic FMR OB H&P: Current - Care : 4 Para: 0 Gestational age: 29.2 Due date: 12/01/2017 Dating Criteria: 11.1w sono Course/Complications: Short cervix Cerclage placed 05/2018 - OB Labs Blood type: AB RH: positive Antibody Screen: negative HIV: negative RPR: negative HepBsAg: negative Rubella: immune Urine drug screen: negative (pos for MJ earlier in ) Gonorrhea: negative Chlamydia: negative Pap Smear: NILM 1 hour gtt: WNL GBS: unknown - First Trimester Ultrasound First trimester: 11.w sono - Anatomy Survey Anatomy survey: WNL FMR OB H&P: History - Past Medical History PMH: None - OB History OB History: SAB x3 (1st at 16w, 2nd at 7w, 3rd at 17w after rescue cerclage) - BOREMATIC OPERATOR History BOREMATIC OPERATOR History: 12/monthly/regular - Surgical History Sx History: [place] teeth Cerclage 2017 Cerclage 2018 - Social History Social History: Smokes 4 cigarettes/day Marijuana use (not since she found out she was ) Denies other drug use or alcohol - Family History Family History: DM, HTN in aunts and uncles FMR OB H&P: Medications - Current Home Medications: Medication Instructions Recorded Confirmed Type Vits96/Iron Fum/Folic 1 tab PO DAILY 09/17/18 09/17/18 History [ Tablet] Allergies/Adverse Reactions: Allergies Allergy/AdvReac Type Severity Reaction Status Date / Time guacamole Allergy Uncoded 05/31/18 12:40 FMR OB H&P: ROS - Review of Systems General: denies: fever/chills, weight/appetite/sleep changes Eyes: denies: eye pain, vision changes ENT: denies: nasal congestion, rhinorrhea Cardiovascular: denies: chest pain, palpitation Respiratory: reports: cough, congestion Gastrointestinal: denies: abdominal pain, cramping Genitourinary (Female): reports: vaginal bleeding Musculoskeletal: denies: pain, stiffness Neurologic: denies: numbness, syncope Integumentary: denies: itching, rash FMR OB H&P: Vital Signs - Heart Tones Baseline: 130 Variability: moderate Acceleration: present Deceleration: absent Category: category 1 [place] contractions every: 3 minutes FMR OB H&P: Physical Exam - Physical Exam General: NAD, awake, alert and oriented HEENT: normocephalic and atraumatic, MMM Neck: supple, trachea midline Chest: non-tender to palpation Heart: RRR, normal S1/S2 General: CTAB, no respiratory distress Abdomen: soft, gravid Musculoskeletal: pulses present Skin: good tugor, capillary refill <2 seconds - Pelvic Exam Deviation from normal: Significant amount at bright red blood at the introitus Presentation: breech FMR OB H&P: Results - Labs Lab results: Laboratory Results - last 24 hr 09/17/18 02:23 WBC 12.7 H RBC 4.42 Hgb 12.7 Hct 36.2 MCV 81.8 MCH 28.7 MCHC 35.0 RDW 11.9 Plt Count 228 MPV 8.8 FMR OB H&P: A/P - Problem List (1) Vaginal bleeding during , antepartum Current Visit: Yes Status: Acute Code(s): O46.90 - ANTEPARTUM HEMORRHAGE, UNSPECIFIED, UNSPECIFIED TRIMESTER (2) Cervical cerclage suture present in third trimester Current Visit: Yes Status: Acute Code(s): O34.33 - MATERNAL CARE FOR CERVICAL INCOMPETENCE, THIRD TRIMESTER (3) labor in third trimester Current Visit: Yes Status: Acute Code(s): O60.03 - LABOR WITHOUT DELIVERY, THIRD TRIMESTER Disposition: 28 yo at 29.2w by 11.1w sono here with vaginal bleeding 1. Vaginal bleeding/ labor - Numerous blood clots passed prior to arrival - Suspect small abruption - H&H WNL on arrival - Will plan for cerclage removal and expectant management 2. sIUP/ labor - Mg for neuroprotection started - s/p BMZx1 - NICU consulted and spoke with patient 3. Cervical insufficiency s/p cerclage placement - Weekly 17-OHP injections this - H/o SAB < 20w x3 prior to this 4. Tobacco abuse, Marijuana abuse - Counseled cessation throughout Dispo: Will attempt cerclage removal and prepare for likely C/S Discussion: Date/Time: 09/17/18 0305 This H&P was discussed with Dr. Cruz who agrees with the above documentation and plan. Attending Addendum - Attending Addendum Date/Time: 09/17/18 0808 I personally evaluated the patient and discussed the management with Dr. Turner. I agree with the History, Examination, Assessment and Plan documented above with any addition or exceptions noted below. Patient with significant clot but no significant active bleeding at time of presentation. Vitals stable and patient without distress. See event note for further details of attempted cerclage removal.
[2018-09-17 03:12] LABS: HBSAg Index 0.22 S/CO (0-0.99); HIV (1/2) Antibody/Antigen Non-Reactive (NonReactive); HIV 1/2 INDEX 0.09 S/CO (<1.00); Hep B Surf Ag Non-Reactive S/CO (NonReactive)
[2018-09-17] MEDS ORDERED: Butorphanol Tartrate 1 MG/ML VIAL SLOW IVP SCH (03:15)
[2018-09-17] MEDS ORDERED: Butorphanol Tartrate 1 MG/ML VIAL ONE ×2 (03:23)
[2018-09-17 03:43] LABS: Amphetamine Not Detected (NotDetected); Barbiturates Screen Not Detected (NotDetected); Benzodiazepine Screen Not Detected (NotDetected); Cocaine Metabolite Screen Not Detected (NotDetected); Medtox Control Line Valid? VALID (VALID); Medtox Reader # READER 4; Methadone Not Detected (NotDetected); Methamphetamine Not Detected (NotDetected); Opiate Screen Not Detected (NotDetected); Oxycodone Screen Not Detected (NotDetected); Phencyclidine (PCP) Not Detected (NotDetected); THC/Cannabinoid Screen Not Detected (NotDetected); Tricyclic Screen Not Detected (NotDetected)
[2018-09-17] MEDS ORDERED: CEFAZOLIN 2 GM/50 ML BAG IVPB SCH (03:45)
--- NOTE | 2018-09-17 04:42 | PDOC.EVN ---
Event Note - Event Note Event Note: At the time of initial exam upon presentation, there was a moderate amount of clot but minimal bright red blood and only mild cramping pain. She was noted to be addie q 2-5 minutes. After an IV was placed, MgSO4 for neuroprotection and celestone were administered, an OR was available, and anesthesia was available, I attempted to remove the cerclage in exam A. At that time, she started to have a large amount of bright red bleeding with increased abdominal pain and the decision was made to proceed with emergent delivery. Please see the op note for full details.
--- NOTE | 2018-09-17 04:46 | PDOC.OPDEL ---
OB Operative/Delivery Note Delivery Dr/Surgeon: Amanda Cruz MD Assist: Elizabeth Shafer MD, Yarelis Turner MD Pre-Delivery Diagnosis: active labor Procedure/Post Delivery Dx: primary low transverse CS Weeks gestation: 29 Anesthesia: other (general) - Findings A Sex: male ("Carlos") Weight: 3 lb 3 oz - 1 min: 5 - 5 min: 7 - Additional Findings/Plan Placenta delivered: spontaneous findings: normal uterus, normal tubes, normal ovaries Estimated blood loss: QBL 770 Compilations/Other Findings: See op note Post delivery plan: routine recovery
[2018-09-17] MEDS ORDERED: Meperidine HCl/PF 25 MG/ML VIAL SLOW IVP PRN (04:50)
[2018-09-17] MEDS ORDERED: diphenhydrAMINE 50 MG/ML VIAL IVP PRN (04:50)
[2018-09-17] MEDS ORDERED: L&D-Morphine 4 MG/ML VIAL SLOW IVP PRN (04:50)
[2018-09-17] MEDS ORDERED: fentaNYL Citrate/PF 2,000 MCG in Sodium Chloride 0.9% 60 ML IV PRN (04:50)
[2018-09-17] MEDS ORDERED: Naloxone HCl 0.4 mg/ml Vial IV PRN (04:50)
[2018-09-17] MEDS ORDERED: Zolpidem Tartrate 5 MG TAB PO PRN (04:50)
[2018-09-17] MEDS ORDERED: Ondansetron HCl/PF 4 MG/2 ML Vial IVP PRN (04:50)
[2018-09-17] MEDS ORDERED: diphenhydrAMINE 25 MG CAP PO PRN (04:50)
[2018-09-17] MEDS ORDERED: diphenhydrAMINE 50 MG/ML VIAL IM PRN (04:50)
[2018-09-17] MEDS ORDERED: HYDROmorphone 2 MG/ML VIAL SLOW IVP PRN (04:50)
[2018-09-17] MEDS ORDERED: Communication Order-Pharmacy FS SCH (05:00)
[2018-09-17] MEDS ORDERED: Ketorolac Tromethamine 30 MG/ML VIAL IVP SCH (05:00)
[2018-09-17] MEDS ORDERED: Fentanyl 250 MCG/5 ML VIAL ONE (05:07)
[2018-09-17 05:15] LABS: Syphilis Antibody Nonreactive (Nonreactive); Syphilis Antibody Index 0.04 S/CO (<1.00 Non-Reactive)
[2018-09-17] MEDS ORDERED: Meperidine HCl/PF 25 MG/ML VIAL ONE (05:25)
[2018-09-17] MEDS ORDERED: NS / Oxytocin 40 units/1000ml 1,000 ML IV SCH (05:45)
[2018-09-17] MEDS ORDERED: Betamet Acet/Betamet Na Ph 30 MG/5 ML VIAL IM SCH (06:30)
--- NOTE | 2018-09-17 07:14 | OP ---
DATE OF PROCEDURE: 09/17/2018 PREOPERATIVE DIAGNOSES: 1. A 29-week intrauterine . 2. labor. 3. Vaginal bleeding. POSTOPERATIVE DIAGNOSES: 1. A 29-week intrauterine . 2. labor. 3. Vaginal bleeding. PROCEDURE PERFORMED: Primary low-transverse section (emergent). ASSISTANTS: 1. Elizabeth Shafer MD. 2. Yarelis Turner MD. ANESTHESIA: General. COMPLICATIONS: None. ESTIMATED BLOOD LOSS: QBL 770 ml in surgery, 938ml prior to surgery FINDINGS: Normal uterus, tubes, and ovaries. Viable male fetus in footling breech presentation. Apgars 5 and 7. weight 3 pounds and 3 ounces. Placenta anterior and appeared to be low lying. Fluid was clear. INDICATION FOR PROCEDURE: The patient presented to Labor and Delivery with a gush of vaginal bleeding at home after coughing. She was afraid her water had broken. Upon presentation, she had a moderate amount of clot in her vaginal vault, but no significant active bleeding. Ultrasound performed at bedside showed the fetus to be in footling breech presentation with grossly normal-appearing fluid, good movement and a normal heart rate. heart tracing was category 1, but the patient was noted to be addie every 2 to 5 minutes. After an IV was started, and the magnesium sulfate for neuroprotection and Celestone were administered, anesthesia and NICU were consulted, and an OR was available, I attempted to remove the cerclage in the exam room. However, at that time, the patient started experiencing more painful contractions with heavy bright red bleeding, and the decision was made to proceed with emergent low-transverse . DESCRIPTION OF PROCEDURE: The patient was taken to the operating room, where general anesthesia was obtained without difficulty. She was prepped and draped in normal sterile fashion in dorsal supine position with left-aguila tilt. A Pfannenstiel skin incision was made with the scalpel and carried down to the underlying layer of fascia. The fascia was incised in midline and extended laterally. The fascia was then dissected off the rectus muscles. The rectus muscles were in the midline and the peritoneum was entered bluntly. The peritoneum was then extended superiorly and inferiorly with good visualization of the bladder. An Salvador O retractor was placed in the abdomen. A low-transverse incision was made with a scalpel and the incision was extended with a full caudal traction. The placenta was then presented at the incision, and the fetus was delivered in breech presentation through the placenta and handed off to waiting NICU team. The placenta was then delivered spontaneously. There did not appear to be any significant amount of clot or evidence of abruption. The uterus was cleared of all clots and debris. The uterine incision was repaired in running locked fashion with a double-layer closure using Monocryl. The abdomen was then irrigated. The Salvador O retractor was removed. Good hemostasis was noted. The incision was repaired in a running fashion with 0 PDS. The subcutaneous tissue was reapproximated with plain gut and the skin was closed with vanessa. Attention was then turned to the vagina, where the patient was placed in stirrups. The speculum was placed in the vagina. The cervix was grasped with ring forceps and the cerclage was visible and grasped with an Allis clamp and cut with Webber scissors and removed easily. Good hemostasis was noted and the speculum was removed from the vagina. The patient tolerated the procedure well. Sponge, lap, and needle counts were correct x2. The patient was taken to recovery room in stable condition. The was taken to the NICU in stable condition. Job ID: [id number] [facility]
--- NOTE | 2018-09-17 08:11 | PDOC.PP ---
Post Progress Note Post Day #: 0 Subjective: 28 yo at 29.2w by 11.1w sono, s/p LTCS currently 4 hours post-op. She had a QBL of 770 and approximately 938 mL prior to . She is doing well currently. Pain management per anesthesia, pain is controlled. She has no other complaints. BPs and HR have remained stable and WNL. Baby in NICU. PO intake tolerated: yes Flatus: no Ambulation: no Weight Weight 82.554 kg - Physical Examination General: NAD Cardiovascular: no m/r/g, RRR Respiratory: clear to auscultation bilaterally, non-labored breathing Abdominal: lochia, no distention, appropriately TTP Skin: CS incision dry & intact, no rash Neurological: no gross focal deficits Psychiatric: A&Ox3, normal affect Result Diagrams: 09/17/18 02:23 Additional Labs: Post Labs Blood Type AB POSITIVE 09/17/18 02:23 Hep Bs Antigen Non-Reactive S/CO (NonReactive) 09/17/18 02:23 (1) labor in third trimester with delivery Code(s): O60.14X0 - LABOR THIRD TRI W DELIVERY THIRD TRI, UNSP Status: Acute (2) Cervical cerclage suture present in third trimester Code(s): O34.33 - MATERNAL CARE FOR CERVICAL INCOMPETENCE, THIRD TRIMESTER Status: Acute (3) Tobacco abuse Code(s): Z72.0 - TOBACCO USE Status: Acute - Assessment/Plan 28 yo at 29.2w by 11.1w sono here s/p LTCS, 4 hours post-op 1. delivery via LTCS - Approx 938 mL blood loss prior to , QBL 770 mL - Vitals have been stable and wnl - Continue routine post care - Pain control per anesthesia at this time - Rechecking CBC this morning - AM H/H on 2. Cervical insufficiency s/p cerclage placement - cerclage unable to be removed prior to due to bleeding 4. Tobacco abuse, Marijuana abuse - Counseled cessation throughout
[2018-09-17 09:24] LABS: Hemoglobin 11.4 g/dL (12.0-16.0); Mean Corpuscular HGB CONC 35.9 g/dL (32.0-36.0); Mean Corpuscular Hemoglobin 29.4 pg (27.0-31.0); Mean Corpuscular Volume 81.9 fL (78.0-98.0); Mean Platelet Volume 8.5 fL (7.4-10.4); Platelet Count 204 thou/uL (130-400); RBC Distribution Width 11.8 % (11.5-14.5); Red Blood Cell (RBC) Count 3.88 mill/uL (4.20-5.40); White Blood Cell (WBC) Count 17.5 thou/uL (4.8-10.8)
[2018-09-17] MEDS ORDERED: Adacel (T-DAP) 0.5 ML SYRINGE IM ONE (10:52)
[2018-09-17] MEDS ORDERED: HYDROcodone/Acetaminophen 5/325 mg Tablet PO PRN ×2 (10:52)
[2018-09-17] MEDS ORDERED: Prenatal Vitamin 1 TAB PO SCH (11:00)
[2018-09-17] MEDS ORDERED: PROPOFOL 200 MG/20 ML VIAL ONE ×2 (11:11→16:02)
[2018-09-17] MEDS ORDERED: ePHEDrine/0.9% NaCl/PF SYRINGE 50 mg/10 ml ONE ×2 (11:11→16:02)
[2018-09-17] MEDS: Ibuprofen 800 MG TAB PO SCH ×2 (14:19→22:04)
[2018-09-17] MEDS ORDERED: PHENYLEPHRINE-NS 100 MCG/ML 10 ML SYRINGE ONE (16:02)
[2018-09-17] MEDS ORDERED: Dexamethasone 20 MG/5 ML VIAL ONE (16:02)
[2018-09-17] MEDS ORDERED: Ketorolac Tromethamine 30 MG/ML VIAL ONE (16:02)
[2018-09-17] MEDS ORDERED: Ondansetron PF 4 MG/2 ML Vial ONE (16:02)
[2018-09-17] MEDS ORDERED: Succinylcholine Chloride 20 MG/ML 10 ml SYRINGE FS ONE (16:02)
[2018-09-18] MEDS ORDERED: Simethicone Chewable 80 MG TAB PO PRN (01:38)
[2018-09-18] MEDS: Acetaminophen/Codeine 30-300mg Tablet PO PRN ×2 (02:01→06:11)
--- NOTE | 2018-09-18 05:49 | PDOC.PP ---
Post Progress Note Post Day #: 1 Subjective: Feeling well and sleeping comfortably. Pain adequately controlled. No concerns or questions at this time. Visiting baby regularly in NICU. PO intake tolerated: yes Flatus: yes Ambulation: yes Vital Signs (12 hours) Temp Pulse Resp BP Pulse Ox 09/18/18 04:15 98.3 F 93 18 94/54 L 09/18/18 00:00 98.4 F 80 20 94/51 L 09/17/18 20:00 98.1 F 80 16 103/58 L 94 L 09/17/18 19:45 95 Weight Weight 82.554 kg - Physical Examination General: NAD Cardiovascular: no m/r/g, RRR Respiratory: clear to auscultation bilaterally Abdominal: + bowel sounds, lochia (minimal) Fundus firm & at: umbilicus Extremities: negative homans (B) Skin: CS incision dry & intact, no rash Neurological: no gross focal deficits Psychiatric: A&Ox3, normal affect Result Diagrams: 09/18/18 06:11 Additional Labs: Post Labs Blood Type AB POSITIVE 09/17/18 02:23 Hep Bs Antigen Non-Reactive S/CO (NonReactive) 09/17/18 02:23 (1) Vaginal bleeding during , antepartum Code(s): O46.90 - ANTEPARTUM HEMORRHAGE, UNSPECIFIED, UNSPECIFIED TRIMESTER Status: Acute (2) Cervical cerclage suture present in third trimester Code(s): O34.33 - MATERNAL CARE FOR CERVICAL INCOMPETENCE, THIRD TRIMESTER Status: Acute (3) labor in third trimester Code(s): O60.03 - LABOR WITHOUT DELIVERY, THIRD TRIMESTER Status: Acute - Assessment/Plan 28 yo s/p LTCS for suspected abruption, POD #1 1. delivery via LTCS, POD #1 - Approx 938 mL blood loss prior to , QBL 770 mL - BP slightly low, asymptomatic, likely baseline, continue to monitor - Continue routine care 2. Tobacco abuse, Marijuana abuse - Counseled cessation throughout - UDS negative on admission Continue routine pp care
[2018-09-18] MEDS: Ibuprofen 800 MG TAB PO SCH ×3 (06:08→22:17)
[2018-09-18 06:55] LABS: Hemoglobin 9.3 g/dL (12.0-16.0); Mean Corpuscular HGB CONC 35.7 g/dL (32.0-36.0); Mean Corpuscular Hemoglobin 29.7 pg (27.0-31.0); Mean Corpuscular Volume 83.1 fL (78.0-98.0); Mean Platelet Volume 8.9 fL (7.4-10.4); Platelet Count 207 thou/uL (130-400); RBC Distribution Width 12.1 % (11.5-14.5); Red Blood Cell (RBC) Count 3.13 mill/uL (4.20-5.40); White Blood Cell (WBC) Count 19.7 thou/uL (4.8-10.8)
[2018-09-18] MEDS ORDERED: guaiFENesin 200 MG TAB PO PRN (07:16)
[2018-09-18] MEDS: Prenatal Vitamin 1 TAB PO SCH (08:54)
[2018-09-19] MEDS: Ibuprofen 800 MG TAB PO SCH ×3 (06:18→21:32)
--- NOTE | 2018-09-19 07:24 | PDOC.PP ---
Post Progress Note Post Day #: 2 Subjective: Feeling well this morning. Pain well-controlled, abulating to NICU regularly, passing gas and had BM last night. PO intake tolerated: yes Flatus: yes Ambulation: yes Vital Signs (12 hours) Temp Pulse Resp BP Pulse Ox 09/18/18 20:15 98.3 F 68 24 H 116/67 99 Weight Weight 82.554 kg - Physical Examination General: NAD Cardiovascular: no m/r/g, RRR Deviation from normal: rhonchi BL Abdominal: + bowel sounds, lochia (minimal), no distention, appropriately TTP Fundus firm & at: umbilicus Skin: CS incision dry & intact, no rash Neurological: no gross focal deficits Psychiatric: A&Ox3, normal affect Result Diagrams: 09/18/18 06:11 Additional Labs: Post Labs Blood Type AB POSITIVE 09/17/18 02:23 Hep Bs Antigen Non-Reactive S/CO (NonReactive) 09/17/18 02:23 (1) Vaginal bleeding during , antepartum Code(s): O46.90 - ANTEPARTUM HEMORRHAGE, UNSPECIFIED, UNSPECIFIED TRIMESTER Status: Acute (2) Cervical cerclage suture present in third trimester Code(s): O34.33 - MATERNAL CARE FOR CERVICAL INCOMPETENCE, THIRD TRIMESTER Status: Acute (3) labor in third trimester Code(s): O60.03 - LABOR WITHOUT DELIVERY, THIRD TRIMESTER Status: Acute - Assessment/Plan 28 yo s/p LTCS for suspected abruption and labor, POD #2 1. delivery via LTCS, POD #2 - Approx 938 mL blood loss prior to , QBL 770 mL - BP slightly low, asymptomatic, likely baseline, continue to monitor - H&H stable - Continue routine care 2. Tobacco abuse, Marijuana abuse - Counseled cessation throughout - UDS negative on admission Continue routine pp care, likely d/c tomorrow
[2018-09-19] MEDS: Prenatal Vitamin 1 TAB PO SCH (10:29)
[2018-09-19 23:46] VITALS: TEMP 98.6
[2018-09-20] MEDS: Ibuprofen 800 MG TAB PO SCH (06:29)
--- NOTE | 2018-09-20 06:43 | PDOC.PP ---
Post Progress Note Post Day #: 3 Subjective: Feeling very well. Reports pain is well controlled and she is ready to go home. PO intake tolerated: yes Flatus: yes Ambulation: yes Vital Signs (12 hours) Temp Pulse Resp BP Pulse Ox 09/19/18 21:30 98.6 F 91 16 96/63 94 L Weight Weight 82.554 kg - Physical Examination General: NAD Cardiovascular: no m/r/g, RRR Deviation from normal: rhonchi BL Abdominal: + bowel sounds, lochia (minimal), no distention, appropriately TTP Fundus firm & at: umbilicus Extremities: negative homans (B) Skin: CS incision dry & intact, no rash Neurological: no gross focal deficits Psychiatric: A&Ox3, normal affect Result Diagrams: 09/18/18 06:11 Additional Labs: Post Labs Blood Type AB POSITIVE 09/17/18 02:23 Hep Bs Antigen Non-Reactive S/CO (NonReactive) 09/17/18 02:23 (1) Vaginal bleeding during , antepartum Code(s): O46.90 - ANTEPARTUM HEMORRHAGE, UNSPECIFIED, UNSPECIFIED TRIMESTER Status: Acute (2) Cervical cerclage suture present in third trimester Code(s): O34.33 - MATERNAL CARE FOR CERVICAL INCOMPETENCE, THIRD TRIMESTER Status: Acute (3) labor in third trimester Code(s): O60.03 - LABOR WITHOUT DELIVERY, THIRD TRIMESTER Status: Acute - Assessment/Plan 28 yo s/p LTCS for suspected abruption and labor, POD #3 1. delivery via LTCS, POD #3 - Approx 938 mL blood loss prior to , QBL 770 mL - VSS - H&H stable - Continue routine care 2. Tobacco abuse, Marijuana abuse - Counseled cessation throughout - UDS negative on admission Continue routine pp care, plan for D/C today
[2018-09-20 08:17] VITALS: BP 116/78
[2018-09-20] MEDS: Prenatal Vitamin 1 TAB PO SCH (10:54)
== END 2018-09-20 12:18 | disposition home or self-care (01) | DRG 786 ==
LOC: L&D/OP 01:21 → L&D 02:24 → 3SE 08:29
PROVIDERS: ADMIT Obstetrics & Gynecology; ATTEND Obstetrics & Gynecology
PROC: 10D00Z1 Extraction of Products of Conception, Low, Open Approach (ICD-10-PCS; principal; 2018-09-17)
PROC: 0UCC7ZZ Extirpation of Matter from Cervix, Via Natural or Artificial Opening (ICD-10-PCS; 2018-09-17)
DX: O60.14X0 Preterm labor third trimester with preterm delivery third trimester, not applicable or unspecified (principal); O44.53 Low lying placenta with hemorrhage, third trimester; O34.33 Maternal care for cervical incompetence, third trimester; O32.8XX0 Maternal care for other malpresentation of fetus, not applicable or unspecified; Z37.0 Single live birth; Z3A.29 29 weeks gestation of pregnancy; O99.334 Smoking (tobacco) complicating childbirth; F17.210 Nicotine dependence, cigarettes, uncomplicated
CPT/HCPCS: 36415; 51702; 80306; 85027; 86780; 86850; 86900; 86901; 86905; 87340; 87389; 88307; 99285; J0595; J1100; J1885; J2175; J2405; J2704; J3010; J3475; J7050